=== PATIENT | male | born 1965 | race Two or more races ===

== ENCOUNTER 2021-09-11 12:22 | Emergency (ER) | payer MEDICAID, OTHER ==
[~2021-09-11 12:22] MED LIST: NOCURR
== END 2021-09-11 15:38 | disposition left against medical advice (07) ==
LOC: EMS 12:25
DX: M54.9 Dorsalgia, unspecified (principal); Z53.21 Procedure and treatment not carried out due to patient leaving prior to being seen by health care provider

== ENCOUNTER 2021-10-01 08:02 | Emergency (ER) | payer MEDICAID ==
[~2021-10-01] VITALS: Ht 170.2 cm; Wt 106.4 kg
[2021-10-01 08:07] VITALS: BP 177/106
[2021-10-01] MEDS ORDERED: DICL100G51 TP (09:33)
[2021-10-01] MEDS ORDERED: ACETAMINOPHEN 325 MG TABLET PO ONE (09:45)
[2021-10-01] MEDS ORDERED: LIDOCAINE 5% TRANSDERMAL PATCH TD ONE (09:45)
[2021-10-01] MEDS ORDERED: IBUPROFEN 400 MG TABLET PO ONE (09:45)
== END 2021-10-01 10:06 | disposition home or self-care (01) ==
LOC: EMS 08:02
DX: M54.31 Sciatica, right side (principal); I10 Essential (primary) hypertension
CPT/HCPCS: 99284; Z7502; Z7610